=== PATIENT | female | born 2000 | race Caucasian/White ===

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

== ENCOUNTER → 2023-11-27 | Outpatient (CLI) | payer OTHER | END | disposition home or self-care (01) | LOC: US 08:49 | PROVIDERS: ATTEND Internal Medicine | DX: K21.9 Gastro-esophageal reflux disease without esophagitis (principal); R11.15 Cyclical vomiting syndrome unrelated to migraine ==

== ENCOUNTER 2024-12-20 11:02 | Emergency (ER) | payer OTHER ==
[~2024-12-20] VITALS: Ht 149.8 cm; Wt 63.5 kg
[2024-12-20] MEDS ORDERED: APRI 28 DAY TA1 EACH PO (11:23)
[2024-12-20] MEDS ORDERED: OMEPRAZOLE40 MG PO (11:23)
[2024-12-21] MEDS ORDERED: NAPROSYN500 MG PO (17:16)
== END 2024-12-20 13:08 | disposition home or self-care (01) ==
LOC: ED 11:02
DX: S83.92XA Sprain of unspecified site of left knee, initial encounter (principal); W10.8XXA Fall (on) (from) other stairs and steps, initial encounter; Y93.01 Activity, walking, marching and hiking; Y92.89 Other specified places as the place of occurrence of the external cause; Y99.8 Other external cause status